=== PATIENT | female | born 1985 | race American Indian/Alaskan Native ===

== ENCOUNTER 2020-01-07 06:08 | Day surgery (SDC) | payer BC ==
[2020-01-07] MEDS ORDERED: LACTATED RINGERS 1,000 ML IV ONE (06:48)
[2020-01-07 07:08] LABS: Basophils # (Auto) 0.1 K/mm3 (0.0-0.1); Basophils % (Auto) 0.6 % (0.0-1.8); Eosinophils % (Auto) 0.5 % (0.0-4.3); Hematocrit 32.9 % (30.3-42.9); Hemoglobin 10.6 gm/dl (10.1-14.3); Lymphocytes # (Auto) 2.3 K/mm3 (1.2-5.4); Lymphocytes % (Auto) 25.8 % (13.4-35.0); Mean Corpuscular HGB Conc 32 % (30-34); Mean Corpuscular Volume 70 fl (79-97); Monocytes # (Auto) 0.8 K/mm3 (0.0-0.8); Monocytes % (Auto) 8.5 % (0.0-7.3); Platelet Count 347 K/mm3 (140-440); Red Blood Count 4.69 M/mm3 (3.65-5.03)
--- NOTE | 2020-01-07 07:29 | Anesthesia Consultation ---
Anesthesia Consult and Med Hx Date of service: 01/07/20 - Airway Anesthetic Teeth Evaluation: Good ROM Head & Neck: Adequate Mental/Hyoid Distance: Adequate Mallampati Class: Class II Intubation Access Assessment: Probably Good - Pulmonary Exam CTA: Yes - Cardiac Exam Cardiac Exam: RRR - Pre-Operative Health Status ASA Pre-Surgery Classification: ASA3 Proposed Anesthetic Plan: Spinal - Pulmonary Hx Asthma: No - Cardiovascular System Hx Hypertension: No - Central Nervous System Hx Seizures: No Hx Psychiatric Problems: No - Endocrine Hx Renal Disease: No Hx Hypothyroidism: No Hx Hyperthyroidism: No - Hematic Hx Anemia: No Hx Sickle Cell Disease: No - Other Systems Hx Alcohol Use: No Hx Obesity: Yes
--- NOTE | 2020-01-07 07:29 | Anesthesia Day of Surgery ---
Anesthesia Day of Surgery - Day of Surgery Patient Examined: Yes Patient H&P Reviewed: Yes Patient is NPO: Yes
[2020-01-07] MEDS ORDERED: FAMOTIDINE 20 MG/2 ML INJ IV NR (07:30)
[2020-01-07] MEDS ORDERED: BICITRA ORAL LIQD 30ML PO NR (07:30)
[2020-01-07 07:36] LABS: Red Cell Distribution Width 22.7 % (13.2-15.2)
[2020-01-07] MEDS ORDERED: METOCLOPRAMIDE 10 MG/2 ML INJ IV NR (08:00)
--- NOTE | 2020-01-07 08:38 | Post Anesthesia Evaluation ---
- Post Anesthesia Evaluation Patient Participated: Yes Airway Patent: Yes Stable Respiratory Function: Yes Nausea/Vomiting: No Temp > 96.8F: Yes Pain Manageable: Yes Adequeate Hydration: Yes Anesthesia Complications: No Block Receding Appropriately: Yes
--- NOTE | 2020-01-07 09:03 | Operative Report ---
Operative Report Operative Report: Surgeon: Dominick Decker MD Surgery: Hamlin Cerclage Placement Anesthesia: Spinal Urine output: 10 cc IVF: 500 cc Pre-op diagnosis: H/o delivery, for history indicated cerclage placement Postop diagnosis: Same Operation performed: Hamlin Cerclage Placement Findings: Normal vaginal, 5 cm cervical length on palpation. Cervix closed. Normal external female genitalia Operation: The patient was taken to the operating room where spinal anesthesia was administered and found to be adequate. A time out was taken. The patient was placed in yellow fin stirrupsThe patient was prepped and draped in the normal sterile fashion. A red rubber catheter was inserted into the patient's bladder, with 10 cc of urine being removed. A sterile vaginal examination was performed that showed the patient's cervical length to be 5 cm in length. The internal cervical os was closed. Normal external genitalia. . No blood or purulence in vagina. Two right angle retractors were placed into the vagina and the anterior lip of the cervix was identified and grapsed with a ring forcep. A #0 Ethibond stitch was used to make a pursetring suture around the cervix at the level of the cervicovesical junctino from 12 oclock, to 9 oclock to 6 oclock to 3 oclock to 12 oclock. The needle was cut off and removed. The stitch was tied. An air knot was then created and the stitch was re-tied. Manual palpation felt the knot to be at 12oclock. THe cervix was closed. All blood was removed from the vagina and the cervix was hemostatic. All instruments were removed. Lap, sponge and needle counts were correct x 2. Patient tolerated the procedure well.
[2020-01-07 11:53] VITALS: BP 125/77
--- NOTE | 2020-01-11 08:31 | History and Physical Report ---
History of Present Illness Date of examination: 01/07/20 History of present illness: Please see H&P faxed over from [facility] prior to patient's scheduled cerclage. Blood type A positive/ antibody neg. Past History - Obstetrical History : 7 Medications and Allergies Allergies Allergy/AdvReac Type Severity Reaction Status Date / Time No Known Allergies Allergy Verified 01/07/20 07:03 Home Medications Medication Instructions Recorded Confirmed Last Taken Type [id number]/Iron/Folic/Docusate 1 each PO 01/07/20 01/06/20 History [Citranatal Rx Tablet] 1 - Vital Signs Vital signs: Vital Signs Temp Pulse Resp Pulse Ox 98.2 F 95 H 16 97 01/07/20 06:36 01/07/20 06:36 01/07/20 06:36 01/07/20 06:36 Temp Pulse Resp BP Pulse Ox 98.6 F 91 H 18 125/77 98 01/07/20 09:06 01/07/20 11:55 01/07/20 09:30 01/07/20 11:52 01/07/20 11:55 Results Result Diagrams: 01/07/20 06:15 All other labs normal.
== END 2020-01-07 11:55 | disposition home or self-care (01) ==
LOC: LDOR 06:08 → TRG 06:22 → LD 09:50 → LDOR 11:55
PROVIDERS: ATTEND Obstetrics & Gynecology Maternal & Fetal Medicine
DX: O34.31 Maternal care for cervical incompetence, first trimester (principal); Z3A.13 13 weeks gestation of pregnancy; O99.211 Obesity complicating pregnancy, first trimester; O09.521 Supervision of elderly multigravida, first trimester; Z83.3 Family history of diabetes mellitus; Z79.899 Other long term (current) drug therapy; Z80.42 Family history of malignant neoplasm of prostate; Z68.43 Body mass index [BMI] 50.0-59.9, adult; Z82.49 Family history of ischemic heart disease and other diseases of the circulatory system
CPT/HCPCS: 36415; 59320; 85025; 86850; 86900; 86901; J2765; J7120